=== PATIENT | female | born 1985 | race Caucasian/White ===

== ENCOUNTER 2017-10-14 08:40 | Emergency (ER) | payer SELFPAY ==
--- NOTE | 2017-10-14 09:52 | RAD ---
AP CHEST: Indication: Chest congestion, cough, sore throat. Comparison: 07-07-16 FINDINGS: Lungs are clear. Cardiomediastinal silhouette is within normal limits. There is partial visualization of instrumentation involving the proximal right humerus. No definite acute osseous abnormality is ev ident. There is partial visualization of ACD plate involving the lower cervical spine. IMPRESSION: No acute cardiopulmonary abnormality. POS: [facility]
== END 2017-10-14 10:17 | disposition home or self-care (01) ==
LOC: ERS 08:40
DX: J02.9 Acute pharyngitis, unspecified (principal); Z71.6 Tobacco abuse counseling; F17.210 Nicotine dependence, cigarettes, uncomplicated
CPT/HCPCS: 71045; 87081; 87430; 99406

== ENCOUNTER 2020-07-16 16:15 | Inpatient (IN) | payer SELFPAY ==
[2020-07-16 16:41] LABS: Bacteria/HPF 1+ HPF (None Seen); Bilirubin Negative (Negative); Blood, Urine 3+ (Negative); Clarity Turbid (Clear); Glucose, Urine (Dipstick) Normal (Negative); Ketone, Urine Negative (Negative); Leukocyte 500 Leu/uL (Negative); Nitrite Negative (Negative); Protein, Urine (Dipstick) 30 mg/dL (Neg-Trace); RBC/HPF Greater than 50 HPF (0-3); Specific Gravity, Urine 1.024 (1.002-1.036); Squamous Epithelial 0-3 HPF (0-3); Urobilinogen Normal mg/dL (Less than 2); WBC/HPF Greater than 50 HPF (0-3); pH, Urine 6.5 (5.0-9.0)
[2020-07-16 16:42] LABS: Pregnancy Test - Urine (BHCG) Negative (Negative); Pregu Control Background? CLEAR/WHITE (CLR/WHITE); Pregu Control Bar Appear? YES (CONTROL BAR); Specific Gravity 1.024 (1.002-1.036)
[2020-07-16] MEDS ORDERED: cefTRIAXone\\ROCEPHIN 1 GM VIAL ONE (17:16)
[2020-07-16] MEDS ORDERED: Morphine 4 MG/ML VIAL ONE ×2 (17:16→19:25)
[2020-07-16] MEDS ORDERED: Ketorolac Tromethamine 30 MG/ML VIAL ONE (17:16)
[2020-07-16 17:18] LABS: #Basophils 0.1 thou/uL (0.0-0.2); #Eosinphils 0.1 thou/uL (0.0-0.7); #Lymphocytes 2.5 thou/uL (1.20-3.40); #Monocytes 0.6 thou/uL (0.11-0.59); #Neutrophils 5.3 thou/uL (1.40-6.50); %Basophils 0.8 % (0.0-1.0); %Eosinophils 0.8 % (0.0-10.0); %Lymphocytes 29.6 % (21.0-51.0); %Monocytes 6.6 % (0.0-10.0); %Neutrophils 62.3 % (42.0-75.0); Hemoglobin 13.1 g/dL (12.0-16.0); Mean Corpuscular HGB CONC 34.5 g/dL (32.0-36.0); Mean Corpuscular Hemoglobin 32.8 pg (27.0-31.0); Mean Corpuscular Volume 95.1 fL (78.0-98.0); Mean Platelet Volume 8.4 fL (7.4-10.4); Platelet Count 250 thou/uL (130-400); RBC Distribution Width 11.8 % (11.5-14.5); Red Blood Cell (RBC) Count 4.01 mill/uL (4.20-5.40); White Blood Cell (WBC) Count 8.5 thou/uL (4.8-10.8)
--- NOTE | 2020-07-16 17:35 | CT ---
CT ABDOMEN AND PELVIS WITHOUT IV CONTRAST: 07/16/20 INDICATIONS: History of kidney stones. Flank pain. COMPARISON: Comparison made to lumbar films of 04/24/17 which revealed a large left renal pelvic calcification and showed mild compression of the L3 vertebrae. No other comparison studies available. FINDINGS: Lung bases clear. Liver, spleen, and pancreas unremarkable. Adrenal glands normal. There is a large calcification in the left renal pelvis measuring up to 2.3 cm AP dimension. There is left hydronephrosis. There is inflammatory haziness surrounding the left renal pelvis would suggest secondary infection. There are numerous other calcifications in the upper collecting structures of th e left kidney all measuring up to 1.0 cm. There are several in the mid pole collecting structures and there are also several in the lower pole collecting structures. There appears to be associated cysts in the lower pole left kidney measuring up to 3.3 cm. The right kidney shows no hydronephrosis. A tiny 2 to 3 mm calculus is seen in the mid pole collectin g structures of the right kidney. Faint blush type calcifications are seen in the papilla of the righ t kidney. Ureters appear normal caliber. The urinary bladder is contracted and not well evaluated. The small and large bowel loops appear unremarkable. The retroperitoneum is unremarkable with nonspec ific lymph nodes. Images through the pelvis show unremarkable uterus and adnexa. There is a circumscribed area of air d ensity in the vaginal vault most consistent with either tampon or other vaginal device. Review of the osseous structures show superior end plate compression of the L3 vertebra which has pro gressed when compared to the lumbar films of 04/24/17. There is significant central height loss at this vertebra. Posterior height and alignment is preserved. IMPRESSION: 1. A large calcification in the left renal pelvis which appears to be producing obstructive swain ge at the left UPJ with associated left hydronephrosis. There is haziness surrounding the left renal pelvis which may represent inflammatory change 2. There are numerous other calcifications in the upper pole collecting structures of the left k idney as described. 3. There is a cyst in the lower pole left kidney. 4. At least one small calcification in the mid pole collecting structures of the right kidney. 5. Compression deformity at the L3 vertebra as described. POS: [facility]
[2020-07-16 17:42] LABS: ALT (SGPT) 10 U/L (8-55); AST (SGOT) 15 U/L (5-34); Albumin 4.4 g/dL (3.5-5.0); Alkaline Phosphatase 45 U/L (40-110); Anion Gap 13 mmol/L (10-20); BUN (Urea Nitrogen) 20 mg/dL (7.0-18.7); Bilirubin, Total 0.3 mg/dL (0.2-1.2); Calc. Creatinine Clearance 0 mL/min (70-130); Carbon Dioxide 23 mmol/L (22-29); Chloride 106 mmol/L (98-107); Estimated GFR-MDRD 79; Globulin 2.5 g/dL (2.4-3.5); Glucose 85 mg/dL (70-105); Potassium 4.3 mmol/L (3.5-5.1); Protein, Total 6.9 g/dL (6.0-8.3); Sodium 138 mmol/L (136-145)
--- NOTE | 2020-07-16 18:58 | PDOC.HHP ---
Hospitalist HPI - History of Present Illness Left flank pain History of Present Illness: This is a 34-year-old female patient with a history of nephrolithiasis who presented with ongoing worsening left flank pain. She was diagnosed with nephrolithiasis several months ago for which has been following Dr. Nguyen. Over the past couple of days symptoms became progressively worse with increasing pain in her right flank and associated nausea but no vomiting. She denies any associated fever, dysuria frequency. She also denies any hematuria. Due to worsening symptoms she presented to the ED for further evaluation. At presentation her initial vitals are within normal limits. BMP and CBC were all within normal limits. Urine was turbid with 500 leukocytes, greater than 50 WBCs and 1+ bacteria. CT scan of the abdomen showed obstruction left nephrolithiasis with hydronephrosis He was started on morphine and ketorolac for pain received ceftriaxone. Urology was consulted Hospitalist team consulted for Hospitalist ROS - Review of Systems Constitutional: denies: fever, chills, sweats, weakness Respiratory: denies: cough, shortness of breath, hemoptysis, SOB with excertion Cardiovascular: denies: chest pain, palpitations, orthopnea, paroxysmal noc. dyspnea Gastrointestinal: reports: nausea, abdominal pain. denies: vomiting, diarrhea, constipation Genitourinary: denies: dysuria, frequency, incontinence Neurological: denies: weakness, numbness, incoordination, change in speech Hospitalist History - Past Medical History Other Medical History: Nephrolithiasis - Past Surgical History Other Surgical History: None - Social History Smoking Status: Current every day smoker Alcohol: reports: Occassional Drugs: reports: none Living Situation: With Family - Exam General Appearance: awake alert General - other findings: In no acute distress. Eye: PERRL, anicteric sclera ENT: normocephalic atraumatic, no oropharyngeal lesions Heart: RRR, no murmur, no gallops, no rubs Respiratory: no wheezes, no rales, no tachypnea Gastrointestinal: soft, non-distended, normal bowel sounds, no palpable masses, tender to palpation (Left flank) Extremities: no cyanosis, no clubbing, no edema Hospitalist Results - Labs Result Diagrams: 07/16/20 17:04 07/16/20 17:04 Lab results: WBC 8.5 thou/uL (4.8-10.8) 07/16/20 17:04 Hgb 13.1 g/dL (12.0-16.0) 07/16/20 17:04 Hct 38.1 % (36.0-47.0) 07/16/20 17:04 MCV 95.1 fL (78.0-98.0) 07/16/20 17:04 Plt Count 250 thou/uL (130-400) 07/16/20 17:04 Neutrophils % 62.3 % (42.0-75.0) 07/16/20 17:04 Sodium 138 mmol/L (136-145) 07/16/20 17:04 Potassium 4.3 mmol/L (3.5-5.1) 07/16/20 17:04 Chloride 106 mmol/L (98-107) 07/16/20 17:04 Carbon Dioxide 23 mmol/L (22-29) 07/16/20 17:04 BUN 20 mg/dL (7.0-18.7) H 07/16/20 17:04 Creatinine 0.83 mg/dL (0.6-1.1) 07/16/20 17:04 Glucose 85 mg/dL (70-105) 07/16/20 17:04 Calcium 9.0 mg/dL (7.8-10.44) 07/16/20 17:04 Total Bilirubin 0.3 mg/dL (0.2-1.2) 07/16/20 17:04 AST 15 U/L (5-34) 07/16/20 17:04 ALT 10 U/L (8-55) 07/16/20 17:04 Alkaline Phosphatase 45 U/L (40-110) 07/16/20 17:04 Serum Total Protein 6.9 g/dL (6.0-8.3) 07/16/20 17:04 Albumin 4.4 g/dL (3.5-5.0) 07/16/20 17:04 Urine Ketones Negative mg/dL (Negative) 07/16/20 16:23 Urine Blood 3+ (Negative) A 07/16/20 16:23 Urine Nitrite Negative (Negative) 07/16/20 16:23 Ur Leukocyte Esterase 500 Gillian/uL (Negative) A 07/16/20 16:23 Urine RBC Greater than 50 HPF (0-3) A 07/16/20 16:23 Urine WBC Greater than 50 HPF (0-3) A 07/16/20 16:23 Ur Squamous Epith Cells 0-3 HPF (0-3) 07/16/20 16:23 Urine Bacteria 1+ HPF (None Seen) A 07/16/20 16:23 Hospitalist H&P A/P - Plan Plan: This a 34-year-old female patient with left nephrolithiasis with hydronephrosis being admitted for further evaluation. Left nephrolithiasis with hydronephrosis Pain relief ketorolac/morphine IV fluid Urology consulted Physician communicated with Urinary tract infection UA indicative Started on ceftriaxonewe will continue Follow-up on urine cultures. Tobacco abuse Consult [place] prophylaxisLovenox CODE STATUSfull code
[2020-07-16] MEDS ORDERED: Acetaminophen 325 MG TAB PO PRN (19:44)
[2020-07-16] MEDS ORDERED: Lactated Ringer's 1,000 ML IV SCH (19:45)
[2020-07-16] MEDS ORDERED: cefTRIAXone Sodium 1 MG in Syringe 0 ML IVPB SCH (20:00)
[2020-07-16] MEDS: Sodium Chloride 0.9% 1,000 ML IV SCH (20:16)
[2020-07-16 20:25] VITALS: BMI 18.9
[2020-07-16] MEDS: HYDROcodone/Acetaminophen 5/325 mg Tablet PO PRN (22:31)
[2020-07-16] MEDS: Nicotine 14 MG PATCH TOP SCH (22:32)
[2020-07-17] MEDS: Morphine 2 MG/ML VIAL SLOW IVP PRN ×4 (05:52→22:54)
[2020-07-17] MEDS: Sodium Chloride 0.9% 1,000 ML IV SCH ×3 (05:57→22:54)
[2020-07-17 05:59] LABS: #Basophils 0.1 thou/uL (0.0-0.2); #Eosinphils 0.2 thou/uL (0.0-0.7); #Monocytes 0.6 thou/uL (0.11-0.59); %Basophils 1.1 % (0.0-1.0); %Eosinophils 2.6 % (0.0-10.0); %Lymphocytes 37.8 % (21.0-51.0); %Monocytes 7.3 % (0.0-10.0); %Neutrophils 51.3 % (42.0-75.0); Mean Corpuscular HGB CONC 34.6 g/dL (32.0-36.0); Mean Corpuscular Volume 95.4 fL (78.0-98.0); Mean Platelet Volume 8.8 fL (7.4-10.4); Platelet Count 207 thou/uL (130-400); RBC Distribution Width 11.8 % (11.5-14.5); Red Blood Cell (RBC) Count 3.33 mill/uL (4.20-5.40); White Blood Cell (WBC) Count 7.9 thou/uL (4.8-10.8)
[2020-07-17 06:04] LABS: Anion Gap 9 mmol/L (10-20); BUN (Urea Nitrogen) 20 mg/dL (7.0-18.7); Calc. Creatinine Clearance 114 mL/min (70-130); Calcium 7.7 mg/dL (7.8-10.44); Carbon Dioxide 21 mmol/L (22-29); Chloride 113 mmol/L (98-107); Estimated GFR-MDRD Greater than 90; Glucose 77 mg/dL (70-105); Potassium 3.9 mmol/L (3.5-5.1); Sodium 139 mmol/L (136-145)
[2020-07-17 07:18] LABS: INR-International Normal Ratio 1.1; PTT 35.5 sec (22.9-36.1); Prothrombin Time 14.2 sec (12.0-14.7)
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
[2020-07-17] MEDS ORDERED: Fentanyl 100 MCG/2 ML VIAL ONE (08:44)
[2020-07-17] MEDS ORDERED: Midazolam HCl 2 mg/2 ml Vial ONE (08:44)
[2020-07-17 08:46] LABS: HBCM Index 0.34 S/CO (0-0.79); HBSAg Index 0.17 S/CO (0-0.99); HIV (1/2) Antibody/Antigen Non-Reactive (NonReactive); HIV 1/2 INDEX 0.07 S/CO (<1.00); Hep A IgM AB Non-Reactive (NonReactive); Hep A IgM S/CO 0.22 S/CO (0-0.79); Hep B Surf Ag Non-Reactive S/CO (NonReactive); Hep C IgG Ab Non-Reactive (NonReactive); Hep C Index 0.08 S/CO (0-0.79); Hepatitis B Core IgM Abs Non-Reactive (NonReactive)
--- NOTE | 2020-07-17 09:06 | RAD ---
2 VIEWS CHEST: Date: 07/17/2020 PROVIDED CLINICAL HISTORY: Preop. FINDINGS: Comparison with 07/07/2016. Cardiac and mediastinal silhouette is within normal limits. No focal consolidation, pleural fluid, or pneumothorax apparent. Partially visualized postoperative changes involving the right proximal humer us. IMPRESSION: No evidence for an acute cardiopulmonary process. POS: [facility]
--- NOTE | 2020-07-17 12:31 | PDOC.HOSPP ---
- Subjective Encounter Date: 07/17/20 Encounter Time: 12:29 Subjective: Ms. Serrano was seen today in follow-up of Stage horn calculous, and hydronephrosis. She is back from Left nephostomy tube placement. She has some pain in the area, but overall no complaints. - Objective Vital Signs & Weight: Vital Signs (12 hours) Temp Pulse Resp BP BP Pulse Ox 07/17/20 08:00 97.9 F 53 L 16 95/59 L 98 07/17/20 07:43 97.9 F 51 L 16 95/59 L 98 07/17/20 05:56 116/68 07/17/20 04:21 97.7 F 67 16 94/55 L 96 Weight Admit Weight 132 lb Weight 132 lb I&O: 07/16/20 07/17/20 07/18/20 06:59 06:59 06:59 Intake Total 1400 Balance 1400 Result Diagrams: 07/17/20 05:23 07/17/20 05:23 Hospitalist ROS - Medication Medications: Active Medications Generic Name Dose Route Start Last Admin Trade Name Freq PRN Reason Stop Dose Admin Hydrocodone Bitart/Acetaminophen 1 tab 07/16/20 19:44 07/16/20 22:31 Hydrocodone/Acetaminophen 5/325 Mg Tablet PO 1 tab Q4H PRN Administration Moderate Pain (4-6) Sodium Chloride 1,000 mls @ 100 mls/hr 07/16/20 20:00 07/17/20 05:57 Normal Saline 0.9% IV 1,000 mls .Q10H BOBBY Administration Morphine Sulfate 2 mg 07/17/20 01:42 07/17/20 11:28 Morphine 2 Mg/Ml Vial SLOW IVP 2 mg Q4H PRN Administration Moderate to Severe Pain (6-10) Nicotine 14 mg 07/16/20 22:30 07/16/20 22:32 Nicotine 14 Mg Patch TOP 14 mg Q24HR BOBBY Administration Pneumococcal Polyvalent Vaccine 0.5 ml 07/17/20 21:00 07/17/20 01:34 Pneumococcal 23 "Pneumovax" 0.5 Ml Vial IM 07/17/20 21:01 Not Given .ONCE ONE - Exam Eye: PERRL, anicteric sclera ENT: normocephalic atraumatic Heart: RRR, no murmur, no gallops, no rubs, normal peripheral pulses Respiratory: CTAB, no wheezes, no rales, no ronchi, normal chest expansion Gastrointestinal: soft, non-tender, non-distended, normal bowel sounds, no palpable masses Extremities: no cyanosis, no edema Hosp A/P (1) Left nephrolithiasis Code(s): N20.0 - CALCULUS OF KIDNEY Status: Acute (2) Staghorn calculus Code(s): N20.0 - CALCULUS OF KIDNEY Status: Acute (3) UTI (urinary tract infection) Status: Acute - Plan * Left Staghorn calculous with hydronephrosis and UTI- she is s/p Nephrostomy tube placement * Continue emiric antibiotics with Rocephin * Awaiting urine culture results * Await further recommendations from Urology
--- NOTE | 2020-07-17 12:43 | RAD ---
KUB INDICATION: Status post nephrostomy tube COMPARISON: Prior CT abdomen pelvis dated July 08, 2020 and the nephrostomy fluoroscopic images da pineda July 17, 2020 FINDINGS: Bowel gas: Nonspecific but without overt appearance of obstruction. Lung bases: Clear. Additional findings: The large staghorn calculus overlying the left renal shadow does not appear appr eciably changed. The percutaneous nephrostomy tube is likely unchanged in position. Osseous structures: No acute osseous abnormality is demonstrated. IMPRESSION: 1. Large left staghorn calculus with left-sided nephrostomy tube.
[2020-07-17 12:57] LABS: SARS-CoV-2 MS2 Positive; SARS-CoV-2 N Gene Negative; SARS-CoV-2 S Gene Negative; SARS-CoV-2 by NAA Not Detected (NotDetected); SARS-CoV-2 orf1ab Negative
[2020-07-17] MEDS: HYDROcodone/Acetaminophen 5/325 mg Tablet PO PRN ×2 (13:07→19:50)
[2020-07-17] MEDS ORDERED: Iopamidol 300 61% 50 ML VIAL FS ONE (15:01)
--- NOTE | 2020-07-17 17:11 | SPC ---
Left percutaneous nephrostomy catheter placement sonographic guided Conscious sedation: At least 1 hour spent with the patient for conscious sedation. HISTORY: Obstructing left ureteral calculus. Pyelonephritis. FINDINGS: After explaining the procedure and answering all questions, the left flank was prepped and draped in usual sterile fashion. Sonographic survey shows severe left hydronephrosis with large calcification at the renal pelvis. Sterile technique, buffered local anesthesia, conscious sedation, sonographic guidance, and a left po sterior approach were used to carefully advance a 21-gauge AccuStick needle to the dilated lower pole posterior calyx. Small amount of urine was aspirated. Small contrast injected to opacify the system. 0.018 wire was placed and AccuStick technique used to place a 0.035 J-wire. The wire would not advance into the renal pelvis. It was being blocked by the stone. A 5 Cambodian tapered Berenstein catheter was carefully placed to the central portion of the dilated inf erior pole collecting system. Extensive attempts with a 0.035 glide wire and a 0.035 Amplatz wire to advance into the renal pelvis and ureter were unsuccessful due to the staghorn type calculus compl etely filling the renal pelvis and partially protruding into the inferior pole system. Recent CT scan was closely reviewed, showing that the stone also protrudes into the superior pole col lecting system, so that it would likely not give a better chance for passage of wire. Access to the superior pole system would also be risky. Fluid contrast distention of the system was used in an attempt to distend the system for passage wire , but was unsuccessful. Findings were discussed with Dr. Torres. An 8 Cambodian skater locking loop catheter was then placed into the dilated inferior pole collecting sy stem and secured internally with a coil. It was secured externally with 0 silk suture and left draining to gravity with blood-tinged urine. Patient tolerated the procedure well and was returned in improved condition. IMPRESSION : Technically successful left percutaneous nephrostomy catheter placement. Attempts to pass a wire and catheter into and beyond the renal pelvic staghorn calculus were unsuccessful.
[2020-07-17] MEDS: cefTRIAXone\\ROCEPHIN 1 GM in Sodium Chloride 0.9% 100 ML IVPB SCH (17:53)
[2020-07-17] MEDS: Nicotine 14 MG PATCH TOP SCH (22:48)
[2020-07-18] MEDS: HYDROcodone/Acetaminophen 5/325 mg Tablet PO PRN ×3 (04:54→20:06)
--- NOTE | 2020-07-18 07:42 | PDOC.HOSPP ---
- Objective Vital Signs & Weight: Vital Signs (12 hours) Temp Pulse Resp BP Pulse Ox 07/18/20 07:11 98.3 F 68 17 106/63 97 07/18/20 04:50 98.3 F 73 17 103/63 94 L 07/17/20 23:11 98.2 F 64 18 101/59 L 95 Weight Admit Weight 132 lb Weight 132 lb I&O: 07/17/20 07/18/20 07/19/20 06:59 06:59 06:59 Intake Total 1400 1400 Output Total 750 Balance 1400 650 Result Diagrams: 07/17/20 05:23 07/17/20 05:23 Hospitalist ROS - Medication Medications: Active Medications Generic Name Dose Route Start Last Admin Trade Name Freq PRN Reason Stop Dose Admin Acetaminophen 650 mg 07/16/20 19:44 07/17/20 15:35 Acetaminophen 325 Mg Tab PO 650 mg Q4H PRN Administration Headache/Fever/Mild Pain (1-3) Hydrocodone Bitart/Acetaminophen 1 tab 07/16/20 19:44 07/18/20 04:54 Hydrocodone/Acetaminophen 5/325 Mg Tablet PO 1 tab Q4H PRN Administration Moderate Pain (4-6) Sodium Chloride 1,000 mls @ 100 mls/hr 07/16/20 20:00 07/17/20 22:54 Normal Saline 0.9% IV 1,000 mls .Q10H BOBBY Administration Ceftriaxone Sodium 1 gm/ 100 mls @ 200 mls/hr 07/17/20 18:00 07/17/20 17:53 Sodium Chloride IVPB 100 mls Q24HR BOBBY Administration Morphine Sulfate 2 mg 07/17/20 01:42 07/17/20 22:54 Morphine 2 Mg/Ml Vial SLOW IVP 2 mg Q4H PRN Administration Moderate to Severe Pain (6-10) Nicotine 14 mg 07/16/20 22:30 07/17/20 22:48 Nicotine 14 Mg Patch TOP 14 mg Q24HR BOBBY Administration Hosp A/P (1) Left nephrolithiasis Code(s): N20.0 - CALCULUS OF KIDNEY Status: Acute (2) Staghorn calculus Code(s): N20.0 - CALCULUS OF KIDNEY Status: Acute (3) UTI (urinary tract infection) Status: Acute - Plan * Left Staghorn calculous with hydronephrosis and UTI- she is s/p Nephrostomy tube placement * Continue emiric antibiotics with Rocephin * Awaiting urine culture results * Await further recommendations from Urology
[2020-07-18 07:43] LABS: Hemoglobin 12.7 g/dL (12.0-16.0); Mean Corpuscular HGB CONC 34.5 g/dL (32.0-36.0); Mean Corpuscular Hemoglobin 33.2 pg (27.0-31.0); Mean Corpuscular Volume 96.5 fL (78.0-98.0); Mean Platelet Volume 8.5 fL (7.4-10.4); Platelet Count 191 thou/uL (130-400); RBC Distribution Width 11.7 % (11.5-14.5); Red Blood Cell (RBC) Count 3.81 mill/uL (4.20-5.40); White Blood Cell (WBC) Count 6.9 thou/uL (4.8-10.8)
[2020-07-18 07:59] LABS: Anion Gap 17 mmol/L (10-20); BUN (Urea Nitrogen) 10 mg/dL (7.0-18.7); Calc. Creatinine Clearance 114 mL/min (70-130); Calcium 8.2 mg/dL (7.8-10.44); Carbon Dioxide 16 mmol/L (22-29); Chloride 108 mmol/L (98-107); Estimated GFR-MDRD Greater than 90; Potassium 4.2 mmol/L (3.5-5.1); Sodium 137 mmol/L (136-145)
[2020-07-18 08:04] LABS: Glucose 56 mg/dL (70-105)
--- NOTE | 2020-07-18 08:16 | PRG ---
DATE OF SERVICE: 07/18/2020 SUBJECTIVE: discomfort, @ nephrostomy tube site is anticipated, however, adequately controlled. OBJECTIVE: VITAL SIGNS: Stable and she is afebrile. Is and Os, 1400 in and 750 out, 350 out from the nephrostomy tube, pink nelson tinge with no clots. GENERAL: The patient is in no acute distress. HEART: Regular rate. LUNGS: Clear. ABDOMEN: Soft. No rigidity. No rebound. Nephrostomy tube is secured. EXTREMITIES: No cyanosis, clubbing, or edema. MUSCULOSKELETAL: Equal and symmetric. PSYCHIATRIC: Appears to be appropriate. LABORATORY DATA: Yesterday her white count is 7.9, hemoglobin 11, platelet 207. Coagulation profile is normal. INR 1.1, PTT of 35. Renal function stable. Creatinine of 0.66. test is negative. She is COVID negative, hepatitis and HIV negative. Urine culture on initial presentation is preliminary no growth. Nephrostomy tube, urine output preliminary is negative. She remains on Rocephin. IMPRESSION AND PLAN: 1. Ms. Serrano is a 34-year-old female with history of chronic pain, presented with intractable left flank pain, left staghorn calculi. 2. Status post left nephrostomy tube by Interventional Radiology, which is draining uneventfully. RECOMMENDATION: The patient is to remain in-house for broad-spectrum IV antibiotic therapy. She has been taking Cipro and Bactrim as an outpatient, culture remain negative thus far. we do not know her initial microorganism as she has been on prolonged antibiotic suppressive therapy. Long discussion with patient at bedside, she has a chronic obstructing left kidney, there is a possibility that the left kidney function is diminished. Nevertheless, she requires her kidney stones treated due to presenting discomfort. Although there is mild thinning of the cortex in the left upper pole, it is likely that her kidney is functioning enough to proceed with left PCNL, however continues to make urine from the left nephrostomy tube. This is reassuring. Surgery is scheduled for July 21. She is to be typed and crossed, continue IV Rocephin. Plan IV meropenem on-call to OR. No anticoagulation, i.e., no Lovenox, Toradol as we are planning percutaneous nephrolithotomy on Tuesday. N.p.o. after midnight Tuesday. Appreciate hospitalist's assistance. Dr. Francisco from [facility] covering this weekend , I do not anticipate that she will require acute urologic care. He will be available for p.r.n. issues if needed. Indications for surgery discussed with patient in detail as well as risks and complications including bleeding, pain, infection, injury to adjacent organs, ureteral or renal kidney injury, possible intractable bleeding requiring embolization. Rare nephrectomy discussed with her in detail. She was fully informed, that stage intervention would likely be performed due to multi calyceal presenting stone. Moreover, if significant inflammatory component in which distal access cannot be obtained to the level of the bladder, she will require nephrostomy tube drainage, for a longer period of time to allow inflammatory component to ideally resolve; moreover cannot rule out UPJ obstruction/stenosis from chronic inflammation/chronic obstruction. This was discussed with her in detail and she desires to proceed on Tuesday [facility] [id number] [facility]
[2020-07-18] MEDS: Sodium Chloride 0.9% 1,000 ML IV SCH ×2 (08:43→22:08)
[2020-07-18] MEDS: Morphine 2 MG/ML VIAL SLOW IVP PRN ×2 (08:43→22:03)
--- NOTE | 2020-07-18 08:56 | PDOC.HOSPP ---
- Subjective Encounter Date: 07/18/20 Encounter Time: 08:54 Subjective: Ms. Serrano was seen today in follow of Nephrolithiasis, and UTI. She notes pain in her left side which radiates to the front. She also developed a cough. - Objective Vital Signs & Weight: Vital Signs (12 hours) Temp Pulse Resp BP Pulse Ox 07/18/20 07:11 98.3 F 68 17 106/63 97 07/18/20 04:50 98.3 F 73 17 103/63 94 L 07/17/20 23:11 98.2 F 64 18 101/59 L 95 Weight Admit Weight 132 lb Weight 132 lb I&O: 07/17/20 07/18/20 07/19/20 06:59 06:59 06:59 Intake Total 1400 1400 Output Total 750 Balance 1400 650 Result Diagrams: 07/18/20 07:30 07/18/20 07:30 Hospitalist ROS - Medication Medications: Active Medications Generic Name Dose Route Start Last Admin Trade Name Freq PRN Reason Stop Dose Admin Acetaminophen 650 mg 07/16/20 19:44 07/17/20 15:35 Acetaminophen 325 Mg Tab PO 650 mg Q4H PRN Administration Headache/Fever/Mild Pain (1-3) Hydrocodone Bitart/Acetaminophen 1 tab 07/16/20 19:44 07/18/20 04:54 Hydrocodone/Acetaminophen 5/325 Mg Tablet PO 1 tab Q4H PRN Administration Moderate Pain (4-6) Sodium Chloride 1,000 mls @ 100 mls/hr 07/16/20 20:00 07/18/20 08:43 Normal Saline 0.9% IV 1,000 mls .Q10H BOBBY Administration Ceftriaxone Sodium 1 gm/ 100 mls @ 200 mls/hr 07/17/20 18:00 07/17/20 17:53 Sodium Chloride IVPB 100 mls Q24HR BOBBY Administration Morphine Sulfate 2 mg 07/17/20 01:42 07/18/20 08:43 Morphine 2 Mg/Ml Vial SLOW IVP 2 mg Q4H PRN Administration Moderate to Severe Pain (6-10) Nicotine 14 mg 07/16/20 22:30 07/17/20 22:48 Nicotine 14 Mg Patch TOP 14 mg Q24HR BOBBY Administration - Exam Eye: PERRL, anicteric sclera Heart: RRR, no murmur, no gallops, no rubs, normal peripheral pulses Respiratory: CTAB, no wheezes, no rales, no ronchi, normal chest expansion, no tachypnea, normal percussion Gastrointestinal: soft, non-tender, non-distended, normal bowel sounds, no palpable masses, no hepatomegaly Extremities: no cyanosis, no edema Hosp A/P (1) Left nephrolithiasis Code(s): N20.0 - CALCULUS OF KIDNEY Status: Acute (2) Staghorn calculus Code(s): N20.0 - CALCULUS OF KIDNEY Status: Acute (3) UTI (urinary tract infection) Status: Acute - Plan * Left Staghorn calculous with hydronephrosis and UTI- she is s/p Nephrostomy tube placement * Chest and side pain- this may be referred from the nephrostomy tube - if it continues may need radiographic evaluation * Continue empiric antibiotics with Rocephin and Meropenem has been added * Urine cultures are still pending * Urology work-up is in progress
--- NOTE | 2020-07-18 16:56 | PDOC.BPN ---
- Brief Progress Note Encounter Date: 07/18/20 Encounter Time: 16:51 Patient's medical case discussed with Dr. Torres. The patient will be monitored over the weekend. She will go to surgery on Tuesday to have a procedure for stone removal. Dr. Torres requests that she NOT receive any Lovenox going forward due to the risk for severe bleeding .
[2020-07-18] MEDS: cefTRIAXone\\ROCEPHIN 1 GM in Sodium Chloride 0.9% 100 ML IVPB SCH (17:26)
[2020-07-18] MEDS: Nicotine 14 MG PATCH TOP SCH (20:07)
[2020-07-19] MEDS: HYDROcodone/Acetaminophen 5/325 mg Tablet PO PRN ×3 (04:23→23:19)
[2020-07-19] MEDS: Sodium Chloride 0.9% 1,000 ML IV SCH (08:30)
--- NOTE | 2020-07-19 09:03 | PDOC.HOSPP ---
- Subjective Encounter Date: 07/19/20 Encounter Time: 12:00 Subjective: Patient with some persistent pain on and off from nephrostomy tube site. No other complaints. - Objective Vital Signs & Weight: Vital Signs (12 hours) Temp Pulse Resp BP Pulse Ox 07/19/20 08:00 98 07/19/20 07:16 97.4 F L 59 L 17 103/56 L 98 07/19/20 04:30 97.9 F 60 18 102/66 98 Weight Admit Weight 132 lb Weight 132 lb I&O: 07/18/20 07/19/20 07/20/20 06:59 06:59 05:59 Intake Total 1400 1850 Output Total 750 2450 Balance 650 -600 Result Diagrams: 07/18/20 07:30 07/18/20 07:30 Hospitalist ROS - Review of Systems Constitutional: denies: fever, chills Respiratory: denies: cough, shortness of breath Cardiovascular: denies: chest pain, palpitations Gastrointestinal: denies: nausea, vomiting - Medication Medications: Active Medications Generic Name Dose Route Start Last Admin Trade Name Freq PRN Reason Stop Dose Admin Acetaminophen 650 mg 07/16/20 19:44 07/17/20 15:35 Acetaminophen 325 Mg Tab PO 650 mg Q4H PRN Administration Headache/Fever/Mild Pain (1-3) Hydrocodone Bitart/Acetaminophen 1 tab 07/16/20 19:44 07/19/20 04:23 Hydrocodone/Acetaminophen 5/325 Mg Tablet PO 1 tab Q4H PRN Administration Moderate Pain (4-6) Ceftriaxone Sodium 1 gm/ 100 mls @ 200 mls/hr 07/17/20 18:00 07/18/20 17:26 Sodium Chloride IVPB 100 mls Q24HR BOBBY Administration Morphine Sulfate 2 mg 07/17/20 01:42 07/18/20 22:03 Morphine 2 Mg/Ml Vial SLOW IVP 2 mg Q4H PRN Administration Moderate to Severe Pain (6-10) Nicotine 14 mg 07/16/20 22:30 07/18/20 20:07 Nicotine 14 Mg Patch TOP 14 mg Q24HR BOBBY Administration - Exam General Appearance: NAD, awake alert ENT: moist mucosa Heart: RRR, no murmur, no gallops, no rubs Respiratory: CTAB, no wheezes, no rales, no ronchi Gastrointestinal: soft, normal bowel sounds Gastrointestinal - other findings: Nephrostomy tube site with dressing in place, C/D/I Psychiatric: normal affect, normal behavior, A&O x 3 Hosp A/P (1) Left nephrolithiasis Code(s): N20.0 - CALCULUS OF KIDNEY Status: Acute (2) Staghorn calculus Code(s): N20.0 - CALCULUS OF KIDNEY Status: Acute (3) UTI (urinary tract infection) Status: Acute - Plan * Left Staghorn calculous with hydronephrosis and UTI- she is s/p Nephrostomy tube placement * Chest and side pain- this may be referred from the nephrostomy tube - if it continues may need radiographic evaluation * Continue empiric antibiotics with Rocephin and Meropenem has been added * Urine cultures negative thus far * Urology planning on surgical stone removal on Tuesday, no Lovenox prior to surgery
[2020-07-19] MEDS: Dextrose 5 %-0.45 % NaCl 1,000 ML IV SCH (09:51)
[2020-07-19] MEDS: Morphine 2 MG/ML VIAL SLOW IVP PRN ×3 (11:15→21:08)
[2020-07-19] MEDS: cefTRIAXone\\ROCEPHIN 1 GM in Sodium Chloride 0.9% 100 ML IVPB SCH (18:33)
[2020-07-19] MEDS: Nicotine 14 MG PATCH TOP SCH (21:05)
[2020-07-20] MEDS: Dextrose 5 %-0.45 % NaCl 1,000 ML IV SCH ×2 (05:15→22:31)
[2020-07-20] MEDS: HYDROcodone/Acetaminophen 5/325 mg Tablet PO PRN ×3 (06:14→22:28)
[2020-07-20] MEDS: Morphine 2 MG/ML VIAL SLOW IVP PRN (09:02)
[2020-07-20] MEDS ORDERED: Cyclobenzaprine 10 MG TAB PO PRN (11:00)
--- NOTE | 2020-07-20 12:58 | PDOC.HOSPP ---
- Subjective Encounter Date: 07/20/20 Encounter Time: 12:50 Subjective: f/u for L staghorn calculus s/p nephrostomy tube placement receiving Rocephin/Meropenem. Plan for surgical extraction of stone likely 07/21/20. - Objective Vital Signs & Weight: Vital Signs (12 hours) Temp Pulse Resp BP Pulse Ox 07/20/20 08:00 96 07/20/20 07:25 98.2 F 69 16 103/68 98 Weight Admit Weight 132 lb Weight 132 lb I&O: 07/19/20 07/20/20 07/21/20 07:59 06:59 06:59 Intake Total Output Total Balance Result Diagrams: 07/18/20 07:30 07/18/20 07:30 Additional Labs: Microbiology 07/17/20 15:29 Urine Nephrostomy tube Urine Culture - Final NO GROWTH AT 48 HOURS 07/16/20 16:23 Urine voided Urine Culture - Final Hospitalist ROS - Medication Medications: Active Medications Generic Name Dose Route Start Last Admin Trade Name Freq PRN Reason Stop Dose Admin Acetaminophen 650 mg 07/16/20 19:44 07/17/20 15:35 Acetaminophen 325 Mg Tab PO 650 mg Q4H PRN Administration Headache/Fever/Mild Pain (1-3) Hydrocodone Bitart/Acetaminophen 1 tab 07/16/20 19:44 07/20/20 06:14 Hydrocodone/Acetaminophen 5/325 Mg Tablet PO 1 tab Q4H PRN Administration Moderate Pain (4-6) Cyclobenzaprine HCl 10 mg 07/20/20 11:00 07/20/20 11:12 Cyclobenzaprine 10 Mg Tab PO 10 mg Q8H PRN Administration NECK OR MUSCLE PAIN Ceftriaxone Sodium 1 gm/ 100 mls @ 200 mls/hr 07/17/20 18:00 07/19/20 18:33 Sodium Chloride IVPB 100 mls Q24HR BOBBY Administration Dextrose/Sodium Chloride 1,000 mls @ 50 mls/hr 07/19/20 09:15 07/20/20 05:15 D5 1/2 Ns IV Not Given .Q20H BOBBY Morphine Sulfate 2 mg 07/17/20 01:42 07/20/20 09:02 Morphine 2 Mg/Ml Vial SLOW IVP 2 mg Q4H PRN Administration Moderate to Severe Pain (6-10) Nicotine 14 mg 07/16/20 22:30 07/19/20 21:05 Nicotine 14 Mg Patch TOP 14 mg Q24HR BOBBY Administration - Exam General Appearance: NAD, awake alert Eye: PERRL, anicteric sclera ENT: normocephalic atraumatic, no oropharyngeal lesions Neck: supple, symmetric, no JVD, no thyromegaly, no lymphadenopathy Heart: RRR, no murmur, no gallops, no rubs, normal peripheral pulses Heart - other findings: S1, S2 Respiratory: CTAB, no wheezes, no rales, no ronchi, normal chest expansion Gastrointestinal: soft, non-tender, non-distended, normal bowel sounds, no palpable masses Extremities: no cyanosis, no clubbing, no edema Skin: normal turgor Neurological: cranial nerve grossly intact, no new deficit Musculoskeletal: normal tone, normal strength, no muscle wasting Psychiatric: normal affect, A&O x 3 Hosp A/P (1) Left nephrolithiasis Code(s): N20.0 - CALCULUS OF KIDNEY Status: Acute Plan: s/p nephrostomy tube placement, plan for further intervention on 07/21 (2) Staghorn calculus Code(s): N20.0 - CALCULUS OF KIDNEY Status: Acute Plan: See above #1 (3) UTI (urinary tract infection) Status: Acute Plan: Suspected however no dominant organism identified, continue Rocephin/Meropenem (4) Tobacco abuse Code(s): Z72.0 - TOBACCO USE Status: Chronic Plan: Cessation resources - Plan continue antibiotics, out of bed/ambulate, DVT proph w/SCDs Stable overall Continue Rocephin/Meropenem Continue IVF's Pain control as clinically indicated NPO after MN No Lovenox/Toradol pending surgery AM lab: BMP, CBC
[2020-07-20] MEDS: cefTRIAXone\\ROCEPHIN 1 GM in Sodium Chloride 0.9% 100 ML IVPB SCH (16:41)
[2020-07-20] MEDS: Nicotine 14 MG PATCH TOP SCH (22:14)
[2020-07-21] MEDS ORDERED: Ondansetron PF 4 MG/2 ML Vial IVP PRN (00:10)
[2020-07-21] MEDS ORDERED: Ondansetron ODT 4 MG TAB PO PRN (00:10)
[2020-07-21] MEDS: HYDROcodone/Acetaminophen 5/325 mg Tablet PO PRN ×2 (05:29→23:06)
[2020-07-21 06:01] LABS: Hemoglobin 11.5 g/dL (12.0-16.0); Mean Corpuscular HGB CONC 34.7 g/dL (32.0-36.0); Mean Corpuscular Hemoglobin 32.5 pg (27.0-31.0); Mean Corpuscular Volume 93.6 fL (78.0-98.0); Mean Platelet Volume 8.8 fL (7.4-10.4); Platelet Count 210 thou/uL (130-400); RBC Distribution Width 11.6 % (11.5-14.5); Red Blood Cell (RBC) Count 3.54 mill/uL (4.20-5.40); White Blood Cell (WBC) Count 4.8 thou/uL (4.8-10.8)
[2020-07-21 06:24] LABS: Anion Gap 14 mmol/L (10-20); BUN (Urea Nitrogen) 5 mg/dL (7.0-18.7); Calc. Creatinine Clearance 121 mL/min (70-130); Calcium 8.5 mg/dL (7.8-10.44); Carbon Dioxide 23 mmol/L (22-29); Chloride 106 mmol/L (98-107); Estimated GFR-MDRD Greater than 90; Glucose 87 mg/dL (70-105); Potassium 3.5 mmol/L (3.5-5.1); Sodium 139 mmol/L (136-145)
[2020-07-21] MEDS ORDERED: Thrombin 5000 UNITS/5 ML VIAL ONE (06:36)
--- NOTE | 2020-07-21 07:50 | PRG ---
DATE OF SERVICE: 07/21/2020 SUBJECTIVE: The patient doing fine over the weekend, remains afebrile. Appears comfortable. OBJECTIVE: VITAL SIGNS: Stable. Afebrile. I and O's 1950 in, nephrostomy tube output 200 to 450 mL per shift. Urine output nelson in color. GENERAL: The patient is in no acute distress. HEART: Regular rate. LUNGS: Clear. ABDOMEN: Soft. No rigidity. No rebound. No CVA tenderness. Nephrostomy tube in place. EXTREMITIES: No cyanosis, clubbing, or edema. LABORATORY DATA: Morning labs; white count 4.8, hemoglobin 11.5, platelet 210. Coagulation profile is within normal limits. Creatinine 0.62. She has COVID negative. Hepatitis and HIV negative. Urine culture negative. Has been on Rocephin since admission. IMPRESSION AND PLAN: A 34-year-old old female with history of chronic urinary tract infection, left staghorn calculus, large stone burden. Nephrostomy tube was placed by Interventional Radiology on July 17, unable to access the proximal ureter due to impacted nature of the UPJ stone. She is n.p.o. for PCNL, cysto, retrograde ureteral stent catheterization. patient has been fully informed regarding risks and complications, indications. Challenging nature of her multiple stones, likely impacted in nature, UPJ has been discussed with the patient in detail. Possibility of multiple staged intervention has also been discussed. Risks and complications again reviewed including, not limited to, bleeding, pain, infection, injury to adjacent organs, urosepsis, ureteral or renal kidney injury, rare life-threatening hemorrhage requiring embolization, nephrectomy. The patient is typed and crossed. Continue Rocephin, meropenem on-call to OR. Job ID: [id number] [facility]
[2020-07-21] MEDS ORDERED: PROPOFOL 200 MG/20 ML VIAL ONE (09:32)
[2020-07-21] MEDS ORDERED: Lidocaine 1% PF 5 ML VIAL ONE (09:32)
[2020-07-21] MEDS ORDERED: Rocuronium Bromide 10 MG/ML (10ML VIAL) ONE (09:32)
[2020-07-21] MEDS ORDERED: Dexamethasone 20 MG/5 ML VIAL ONE (09:32)
[2020-07-21] MEDS ORDERED: Ondansetron PF 4 MG/2 ML Vial ONE (09:32)
[2020-07-21] MEDS ORDERED: Iothalamate Meglumine 60% 50 ML VIAL FS ONE ×2 (10:14→11:05)
[2020-07-21] MEDS ORDERED: Fentanyl 100 MCG/2 ML VIAL ONE ×3 (10:16→14:36)
[2020-07-21] MEDS ORDERED: Midazolam HCl 2 mg/2 ml Vial ONE ×2 (10:36→11:12)
[2020-07-21] MEDS ORDERED: Meropenem 2 GM, Admixture Fee 1 EACH in Sodium Chloride 0.9% 100 ML IVPB SCH (11:00)
[2020-07-21] MEDS ORDERED: Iopamidol 0 ML ONE (12:48)
[2020-07-21] MEDS ORDERED: Iopamidol 15 ML ONE (12:49)
[2020-07-21] MEDS ORDERED: Iopamidol 30 ML ONE (13:01)
[2020-07-21] MEDS ORDERED: Mag-Al 1200 mg/1200 mg/30 ML UDCUP PO PRN (13:41)
[2020-07-21] MEDS ORDERED: Acetaminophen 500 MG TAB PO PRN (13:41)
[2020-07-21] MEDS ORDERED: Promethazine HCl 25 MG/ML VIAL SLOW IVP PRN (13:48)
[2020-07-21] MEDS ORDERED: Ondansetron HCl/PF 4 MG/2 ML Vial IVP PRN (13:48)
[2020-07-21] MEDS ORDERED: Promethazine HCl 25 MG/ML VIAL IM PRN (13:48)
[2020-07-21] MEDS ORDERED: HYDROmorphone 2 MG/ML VIAL SLOW IVP PRN (13:48)
[2020-07-21] MEDS: Sodium Chloride 0.9% 1,000 ML IV SCH ×2 (14:00→23:07)
[2020-07-21] MEDS ORDERED: HYDROmorphone 0.5 MG/0.5 ML SYRINGE ONE ×2 (14:10→14:25)
[2020-07-21] MEDS ORDERED: HYDROmorphone 2 MG/ML VIAL ONE (14:36)
[2020-07-21 14:51] LABS: #Eosinphils 0.1 thou/uL (0.0-0.7); #Lymphocytes 0.9 thou/uL (1.20-3.40); #Monocytes 0.3 thou/uL (0.11-0.59); %Basophils 0.3 % (0.0-1.0); %Lymphocytes 12.5 % (21.0-51.0); %Monocytes 3.7 % (0.0-10.0); %Neutrophils 82.5 % (42.0-75.0); Hemoglobin 13.4 g/dL (12.0-16.0); Mean Corpuscular Volume 94.1 fL (78.0-98.0); Mean Platelet Volume 8.8 fL (7.4-10.4); Platelet Count 221 thou/uL (130-400); RBC Distribution Width 11.7 % (11.5-14.5); White Blood Cell (WBC) Count 7.2 thou/uL (4.8-10.8)
[2020-07-21 15:10] LABS: Anion Gap 18 mmol/L (10-20); BUN (Urea Nitrogen) 5 mg/dL (7.0-18.7); Calc. Creatinine Clearance 115 mL/min (70-130); Calcium 8.8 mg/dL (7.8-10.44); Carbon Dioxide 17 mmol/L (22-29); Chloride 108 mmol/L (98-107); Estimated GFR-MDRD Greater than 90; Glucose 82 mg/dL (70-105); Potassium 4.2 mmol/L (3.5-5.1); Sodium 139 mmol/L (136-145)
--- NOTE | 2020-07-21 15:22 | PDOC.HOSPP ---
- Subjective Encounter Date: 07/21/20 Encounter Time: 15:15 Subjective: f/u for large staghorn calculus with impaction s/p L nephrostomy tube by IR. Receiving Rocephin/IVF's and pain meds. - Objective Vital Signs & Weight: Vital Signs (12 hours) Temp Pulse Resp BP Pulse Ox 07/21/20 07:36 97.8 F 59 L 18 118/62 97 Weight Admit Weight 132 lb Weight 132 lb I&O: 07/20/20 07/21/20 07/22/20 06:59 06:59 06:59 Intake Total 1950 Output Total 1650 Balance 300 Result Diagrams: 07/21/20 14:38 07/21/20 14:38 Additional Labs: Microbiology 07/17/20 15:29 Urine Nephrostomy tube Urine Culture - Final NO GROWTH AT 48 HOURS 07/16/20 16:23 Urine voided Urine Culture - Final Hospitalist ROS - Medication Medications: Active Medications Generic Name Dose Route Start Last Admin Trade Name Freq PRN Reason Stop Dose Admin Hydrocodone Bitart/Acetaminophen 1 tab 07/16/20 19:44 07/21/20 05:29 Hydrocodone/Acetaminophen 5/325 Mg Tablet PO 1 tab Q4H PRN Administration Moderate Pain (4-6) Cyclobenzaprine HCl 10 mg 07/20/20 11:00 07/20/20 11:12 Cyclobenzaprine 10 Mg Tab PO 10 mg Q8H PRN Administration NECK OR MUSCLE PAIN Ceftriaxone Sodium 1 gm/ 100 mls @ 200 mls/hr 07/17/20 18:00 07/20/20 16:41 Sodium Chloride IVPB 100 mls Q24HR BOBBY Administration Dextrose/Sodium Chloride 1,000 mls @ 50 mls/hr 07/19/20 09:15 07/20/20 22:31 D5 1/2 Ns IV 1,000 mls .Q20H BOBBY Administration Sodium Chloride 1,000 mls @ 120 mls/hr 07/21/20 13:45 07/21/20 14:00 Normal Saline 0.9% IV Not Given .Q8H20M BOBBY Morphine Sulfate 2 mg 07/17/20 01:42 07/20/20 09:02 Morphine 2 Mg/Ml Vial SLOW IVP 2 mg Q4H PRN Administration Moderate to Severe Pain (6-10) Nicotine 14 mg 07/16/20 22:30 07/20/20 22:14 Nicotine 14 Mg Patch TOP Not Given Q24HR BOBBY Ondansetron HCl 4 mg 07/21/20 00:10 07/21/20 00:23 Ondansetron Pf 4 Mg/2 Ml Vial IVP 4 mg Q6H PRN Administration Nausea/Vomiting - Exam General Appearance: NAD, awake alert Eye: PERRL, anicteric sclera ENT: normocephalic atraumatic, no oropharyngeal lesions Neck: supple, symmetric, no JVD, no thyromegaly, no lymphadenopathy Heart: RRR, no gallops, no rubs, normal peripheral pulses Respiratory: CTAB, no wheezes, no rales, no ronchi, normal chest expansion Gastrointestinal: soft, non-tender, non-distended, normal bowel sounds, no palpable masses Extremities: no cyanosis, no clubbing, no edema Skin: normal turgor, no lesions Neurological: cranial nerve grossly intact, no new deficit Musculoskeletal: normal tone, normal strength, no muscle wasting Psychiatric: normal affect, A&O x 3 Hosp A/P (1) Left nephrolithiasis Code(s): N20.0 - CALCULUS OF KIDNEY Status: Acute Plan: Continue nephrostomy drainage, awaiting potential laser procedure (2) Staghorn calculus Code(s): N20.0 - CALCULUS OF KIDNEY Status: Acute (3) UTI (urinary tract infection) Status: Acute Plan: Continue Rocephin/IVF's (4) Tobacco abuse Code(s): Z72.0 - TOBACCO USE Status: Chronic - 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
--- NOTE | 2020-07-21 15:43 | SPC ---
PROCEDURE: Antegrade pyelogram left renal collecting system with sonographic guided access of the collecting sys tem PROVIDED CLINICAL HISTORY: Obstructing calculus left renal pelvis. COMPARISON: CT abdomen and pelvis on 07/16/2020 and prior nephrostomy tube placement on 07/17/2020 TECHNIQUE: After informed consent was obtained, a left ureteral stent as well as retrograde placement of a left ureteral catheter was placed by Dr. Torres. Patient was placed on the operating room table in prone position. General endotracheal anesthesia was performed by anesthesiology support. The left-sided percutaneous nephrostomy tube and surrounding area were meticulously prepped and drape d in usual sterile fashion. A nephrostogram was performed which opacified the lower pole renal collecting system. The catheter was cut and exchanged over a 0.035 inch Amplatz guidewire for a 5 Man[facility] Berenstein catheter. However, due to redundancy of the catheter in the collecting system, access was not able to be salvaged at this location. As a result, the nephrostomy tube was removed. Utilizing concurrent real-time ultrasound guidance, a posterior inferior pole calyx was accessed util izing micropuncture technique, and a 4 German introducer sheath was placed. Sheath was exchanged over a 0.035 inch Amplatz guidewire for a 5 German Berenstein catheter. Contrast was injected to conf irm placement in the renal collecting system. Multiple attempts at manipulating the catheter and a 0.035 inch Glidewire distal to the large renal pelvis calculus were unsuccessful. Contrast was inject ed via the retrograde ureteral catheter, and again the catheter and Glidewire were unable to be manipulated distal to the calculus or through the infundibulum likely due to combination of the calcu kalin and infundibular stenosis. A posterior calyx in the midportion right kidney was unable to be accessed due to overlying rib. At this time, the procedure was terminated, and the Berenstein catheter was removed. Fluoroscopy: Time-15 minutes 13 seconds Dose-89.4 mGy FINDINGS: Large staghorn calculus left renal pelvis with stenosis involving the inferior pole infundibulum. Mul tiple attempts at manipulating a catheter and Glidewire distal to the staghorn calculus in the renal pelvis were unsuccessful due to calculus extending into the infundibulum as well as narrowing o f the infundibulum. IMPRESSION: 1. Unsuccessful attempt at placement of a left nephroureteral catheter via an inferior pole posterior renal calyx after multiple attempts. 2. A retrograde left ureteral stent is noted in place with the proximal portion of the stent overlyin g the renal pelvis and distal portion overlying the urinary bladder. 3. Staghorn left renal calculus occupying the renal pelvis and extending into the inferior pole infun dibulum where there is associated stenosis.
--- NOTE | 2020-07-21 17:36 | OP ---
DATE OF PROCEDURE: 07/21/2020 PREOPERATIVE DIAGNOSIS: Left staghorn calculi with chronic hydronephrosis. POSTOPERATIVE DIAGNOSIS: Left staghorn calculi with chronic hydronephrosis. PROCEDURES PERFORMED: 1. Cystoscopy. 2. Left retrograde pyelogram. 3. 6 x 28 double-J ureteral stent. 4. Nephrostogram. 5. Nephrostomy tube removal. 6. Attempted percutaneous nephrolithotomy. ANESTHESIA: General. COMPLICATIONS: None apparent. DISPOSITION: To recovery room in stable condition. DRAINS: 1. 20-Samoan 10 mL indwelling urethral Arellano catheter to gravity. 2. 6 x 28 double-J ureteral stent. INTRAOPERATIVE FINDINGS: Large left renal pelvic stone, likely impacted with infundibular stenosis of the lower pole with chronic hydronephrosis of the lower pole. INDICATIONS FOR PROCEDURE AND HISTORY: Ms. Lantigua is a 34-year-old female with history of chronic UTI. She was referred to me a few months ago; however, we were unable to proceed with PCNL due to insurance issues that she is not a [facility] resident of [facility] She has subsequently presented to [facility] Emergency Room, admitted for left flank pain, underwent nephrostomy tube placement by Interventional Radiology. A nephrostomy tube or wire could not be passed beyond the stone due to the impacted nature of her left renal pelvic stone. However, nephrostomy tube was placed and was draining uneventfully. She presented with no evidence of leukocytosis or fever of concern, culture remains negative, on broad-spectrum antibiotic therapy, and presents today for percutaneous nephrolithotomy. Risks and complications of the procedure were reviewed with her in detail including, but not limited to: Bleeding; pain; infection; injury to adjacent organs; ureteral, renal, or kidney injury; possible critical bleed, requiring embolization and rare nephrectomy was reviewed with her in detail. She has been fully informed given nature of her stone, multi-calyceal density size that she will require multiple surgical interventions. DESCRIPTION OF PROCEDURE: After an informed consent was signed, the patient was taken to the operating room and placed in a dorsal lithotomy position with the genital area prepped and draped in the usual surgical sterile fashion. A 21- Samoan cystoscope was utilized for cystoscopy, which demonstrated normal orthotopic ureteral orifices bilaterally. No bladder tumor or stones were seen. An open- ended catheter was utilized for retrograde pyelogram, which demonstrated unremarkable left ureter. The large stone was seen in the renal pelvis and I was able to see the collecting system opacify with chronic hydronephrosis, more severe in the left lower pole. I was able to pass a 0.035 Sensor wire to the left mid to upper pole surrounding the stone and a 6 x 28 double-J ureteral stent was passed. I passed a stent, as Interventional Radiology had a difficult time placing a wire down to the level of the renal pelvis and proximal ureter, therefore stent was placed in case there was an issue obtaining a distal access. An open-ended catheter was able to be passed into the portion of the distal intramural ureter as a 2nd retrograde catheter, so that we may opacify and dilate the left collecting system while IR is placing the nephrostomy tube for access or access maturation. A 20-Samoan Arellano catheter was placed. A semi open-ended catheter was sutured to the Arellano catheter for secure placement. The patient was then placed in a prone position with all pressure points protected and padded. A retrograde access was able to be opacified through the open-ended catheter with the stent, which remains in situ. Please see Dr. Cali's records and operative notes for attempted percutaneous nephrostomy tube access. The pre-existing nephrostomy tube was unable to be utilized, as the wire would not go beyond the calyx, ultimately was removed by Dr. Cali. Multiple attempts were performed to obtain a percutaneous access into the left collecting system. On retrograde opacification, I was able to opacify a mid to upper pole calyx with an adequate infundibulum; however, as her kidney is high riding, the diaphragm pleura reflection is very close to the insertion of her 12th rib. Dr. Cali felt that it was not a good place to place a percutaneous access into the mid upper pole, as there is a risk of lung injury. Therefore, PCNL was abandoned and safe access could not be performed. The patient was then extubated and transported to the recovery room in stable condition. My plan is that as there was significant infundibular stenosis of the lower pole, I would be prudent to obtain a Lasix renal scan before we embark on multiple ureteroscopies. Job ID: [id number] [facility]
[2020-07-21] MEDS: cefTRIAXone\\ROCEPHIN 1 GM in Sodium Chloride 0.9% 100 ML IVPB SCH (17:51)
[2020-07-21] MEDS: Oxybutynin 5 MG TAB PO PRN (19:41)
[2020-07-21] MEDS: Morphine 2 MG/ML VIAL SLOW IVP PRN (19:41)
[2020-07-21] MEDS: Docusate 100 MG CAP PO SCH (19:41)
[2020-07-21] MEDS: Phenazopyridine HCl 100 MG TAB PO PRN (20:12)
[2020-07-21] MEDS: Nicotine 14 MG PATCH TOP SCH (23:07)
[2020-07-21] MEDS: Dextrose 5 %-0.45 % NaCl 1,000 ML IV SCH (23:44)
[2020-07-22] MEDS: Morphine 2 MG/ML VIAL SLOW IVP PRN ×3 (01:18→12:27)
[2020-07-22 05:31] LABS: #Basophils 0.1 thou/uL (0.0-0.2); #Eosinphils 0.2 thou/uL (0.0-0.7); #Lymphocytes 2.3 thou/uL (1.20-3.40); #Monocytes 0.6 thou/uL (0.11-0.59); #Neutrophils 3.2 thou/uL (1.40-6.50); %Eosinophils 2.5 % (0.0-10.0); %Monocytes 9.2 % (0.0-10.0); %Neutrophils 51.4 % (42.0-75.0); Hemoglobin 10.9 g/dL (12.0-16.0); Mean Corpuscular HGB CONC 34.7 g/dL (32.0-36.0); Mean Corpuscular Hemoglobin 32.6 pg (27.0-31.0); Mean Corpuscular Volume 93.9 fL (78.0-98.0); Mean Platelet Volume 8.6 fL (7.4-10.4); Platelet Count 220 thou/uL (130-400); RBC Distribution Width 11.5 % (11.5-14.5); Red Blood Cell (RBC) Count 3.34 mill/uL (4.20-5.40); White Blood Cell (WBC) Count 6.3 thou/uL (4.8-10.8)
[2020-07-22 05:54] LABS: Anion Gap 15 mmol/L (10-20); BUN (Urea Nitrogen) 7 mg/dL (7.0-18.7); Calc. Creatinine Clearance 125 mL/min (70-130); Carbon Dioxide 20 mmol/L (22-29); Chloride 108 mmol/L (98-107); Estimated GFR-MDRD Greater than 90; Glucose 69 mg/dL (70-105); Potassium 3.5 mmol/L (3.5-5.1); Sodium 139 mmol/L (136-145)
[2020-07-22] MEDS: Oxybutynin 5 MG TAB PO PRN (06:11)
[2020-07-22] MEDS: Phenazopyridine HCl 100 MG TAB PO PRN (06:11)
[2020-07-22] MEDS: Sodium Chloride 0.9% 1,000 ML IV SCH (06:11)
[2020-07-22] MEDS: HYDROcodone/Acetaminophen 5/325 mg Tablet PO PRN ×2 (08:11→16:31)
[2020-07-22] MEDS: Docusate 100 MG CAP PO SCH (08:11)
[2020-07-22 08:16] VITALS: BP 99/61; TEMP 98.1
--- NOTE | 2020-07-22 08:34 | PRG ---
DATE OF SERVICE: 07/22/2020 SUBJECTIVE: The patient is feeling okay, relates discomfort due to indwelling urethral Arellano catheter draining nelson urine. OBJECTIVE: VITAL SIGNS: Stable. She is afebrile. I's and O's 2678 in and 1350 out, positive 1.3 L. GENERAL: The patient is in no acute distress. ABDOMEN: Soft, nontender, nondistended. No rigidity. No rebound. EXTREMITIES: No cyanosis, clubbing, or edema. : Arellano catheter draining uneventfully. LABORATORY STUDIES: White count is 6.3, hemoglobin 10.9, platelet 220. Renal function is stable with creatinine 0.6. IMPRESSION AND PLAN: 1. A 34-year-old female with left staghorn, chronic hydronephrosis. 2. Postop day #1, cystoscopy, left retrograde stent placement, nephrostomy tube removal. RECOMMENDATIONS: Due to severe infundibular stenosis, unable to obtain percutaneous access by Interventional Radiology to proceed with PCNL. Therefore, indwelling ureteral stent was placed. Due to infundibulum stenosis, which was unanticipated, we were unable to proceed with safe percutaneous access as her mid and upper pole access were deemed suboptimal due to underlying rib and proximally of the pleura. As such, Lasix renal scan will be obtained today to assess the degree of differential function of the left kidney. If adequate function, she has been informed that I would recommend ureteroscopy, which will require multiple surgical intervention due to stone size moiety and location. Continue indwelling Arellano catheter until renal scan obtained. addendum: Lasix renal scan discussed with patient in detail demonstrating adequate function of the left kidney therefore staged ureteroscopy laser lithotripsy advised I informed the patient that we can proceed with her first ureteroscopy tomorrow, she declines. Requesting surgery to be scheduled in outpatient at a later date. Discussed with hospitalist, will be discharged with oxybutynin, Colace, ciprofloxacin for 7 days. Job ID: [id number] [facility]
--- NOTE | 2020-07-22 11:27 | PDOC.HOSPP ---
- Subjective Encounter Date: 07/22/20 Encounter Time: 11:25 Subjective: f/u for large L staghorn calculus s/p removal of nephrostomy tube and placement of ureteral stent. Plan for manual stone extraction as laser option unavailabe due to proximal stenosis. c/o Arellano catheter pain. - Objective Vital Signs & Weight: Vital Signs (12 hours) Temp Pulse Resp BP Pulse Ox 07/22/20 08:15 98.1 F 56 L 18 99/61 98 07/22/20 08:00 98 07/22/20 05:50 98.2 F 55 L 20 109/65 97 07/21/20 23:42 97.8 F 68 18 96/59 L 98 Weight Admit Weight 132 lb Weight 132 lb I&O: 07/21/20 07/22/20 07/23/20 06:59 06:59 06:59 Intake Total 1950 2678 Output Total 1650 1350 Balance 300 1328 Result Diagrams: 07/22/20 04:52 07/22/20 04:52 Additional Labs: Microbiology 07/17/20 15:29 Urine Nephrostomy tube Urine Culture - Final NO GROWTH AT 48 HOURS 07/16/20 16:23 Urine voided Urine Culture - Final Hospitalist ROS - Medication Medications: Active Medications Generic Name Dose Route Start Last Admin Trade Name Freq PRN Reason Stop Dose Admin Hydrocodone Bitart/Acetaminophen 1 tab 07/16/20 19:44 07/22/20 08:11 Hydrocodone/Acetaminophen 5/325 Mg Tablet PO 1 tab Q4H PRN Administration Moderate Pain (4-6) Cyclobenzaprine HCl 10 mg 07/20/20 11:00 07/20/20 11:12 Cyclobenzaprine 10 Mg Tab PO 10 mg Q8H PRN Administration NECK OR MUSCLE PAIN Docusate Sodium 100 mg 07/21/20 21:00 07/22/20 08:11 Docusate 100 Mg Cap PO 100 mg BID BOBBY Administration Ceftriaxone Sodium 1 gm/ 100 mls @ 200 mls/hr 07/17/20 18:00 07/21/20 17:51 Sodium Chloride IVPB 100 mls Q24HR BOBBY Administration Sodium Chloride 1,000 mls @ 120 mls/hr 07/21/20 13:45 07/22/20 06:11 Normal Saline 0.9% IV 1,000 mls .Q8H20M BOBBY Administration Morphine Sulfate 2 mg 07/17/20 01:42 07/22/20 06:11 Morphine 2 Mg/Ml Vial SLOW IVP 2 mg Q4H PRN Administration Moderate to Severe Pain (6-10) Nicotine 14 mg 07/16/20 22:30 07/21/20 23:07 Nicotine 14 Mg Patch TOP Not Given Q24HR BOBBY Ondansetron HCl 4 mg 07/21/20 00:10 07/21/20 00:23 Ondansetron Pf 4 Mg/2 Ml Vial IVP 4 mg Q6H PRN Administration Nausea/Vomiting Oxybutynin Chloride 5 mg 07/21/20 13:41 07/22/20 06:11 Oxybutynin 5 Mg Tab PO 5 mg Q8H PRN Administration Bladder Spasms Phenazopyridine HCl 200 mg 07/21/20 13:47 07/22/20 06:11 Phenazopyridine Hcl 100 Mg Tab PO 200 mg Q8H PRN Administration Dysuria Hosp A/P (1) Left nephrolithiasis Code(s): N20.0 - CALCULUS OF KIDNEY Status: Acute Plan: Plan for manual extraction due to large nature of stone and inability to use laser option (2) Staghorn calculus Code(s): N20.0 - CALCULUS OF KIDNEY Status: Acute (3) UTI (urinary tract infection) Status: Acute Plan: Suspected, continue Rocephin, IVF's (4) Tobacco abuse Code(s): Z72.0 - TOBACCO USE Status: Chronic - Plan continue antibiotics, out of bed/ambulate Stable overall Continue Rocephin Continue IVF's D/C Arellano today Pain control as clinically indicated No Lovenox/Toradol pending surgery AM lab: BMP, CBC
--- NOTE | 2020-07-22 11:57 | NM ---
NM Renogram HIPN Lasix HISTORY: Renal calculus Radiopharmaceutical: 8.13 mCi technetium 99m-[id number] injected intravenously Diuretic: 30 mg IV Lasix given 15 minutes prior to the injection of the radiopharmaceutical. FINDINGS: The exam was performed with a Arellano catheter in the neobladder. There is good flow to both kidneys with good bilateral tracer uptake and slower excretion by the left kidney compared to the right. Renogram slopes are bilaterally downsloping. The differential function measures 57% on the left and 42% on the right. IMPRESSION: No evidence of high-grade obstruction.
[2020-07-22] MEDS: cefTRIAXone\\ROCEPHIN 1 GM in Sodium Chloride 0.9% 100 ML IVPB SCH (16:27)
--- NOTE | 2020-07-23 02:36 | DIS ---
DATE OF ADMISSION: 07/16/2020 DATE OF DISCHARGE: 07/22/2020 DISCHARGE DIAGNOSES: 1. Left nephrolithiasis. 2. Large left staghorn calculus. 3. Left-sided hydronephrosis secondary to #1 and #2. 4. Urinary tract infection, suspected with no dominant organism identified. 5. Tobacco abuse. CONSULTATIONS: Dr. Huang Acevedo with Urology Service. PERTINENT LABORATORY AND X-RAY FINDINGS: Urine beta-hCG negative 07/16/2020. COVID-19 PCR not detected 07/16/2020. Hepatitis A, B, and C panel nonreactive 07/17/2020. HIV-1 and HIV-2 antigen antibody nonreactive 07/17/2020. Urine culture dated 07/17/2020, showed no growth at 48 hours. Urine culture dated 07/16/2020, showed greater than 100,000 colonies of normal rasheed. CT of the abdomen and pelvis dated 07/16/2020 showed large calcification in the left renal pelvis with obstruction at the left UPJ region with left hydronephrosis. Abdominal radiographs dated 07/17/2020 showed large left staghorn calculus with left-sided nephrostomy tube in position. Lasix renal scan dated 07/22/2020, showed no evidence of high-grade obstruction. HOSPITAL COURSE: The patient initially presented with increased left flank pain with history of prior nephrolithiasis, undergoing CT imaging of the abdomen and pelvis showing a large left staghorn calculus at the proximal left ureter with associated left hydronephrosis. The patient was placed on broad-spectrum IV antibiotic therapy and given IV Toradol and morphine sulfate. The patient was evaluated by the Urology Service with recommendations to undergo nephrostomy tube placement, which the patient did have place successfully. The patient was monitored for clinical response, and overall had excellent urine output during her hospital course. The patient underwent evaluation for potential laser procedure to remove the large impacted stone; however, stenosis proximally with scarring precluded the procedure from occurring. The patient underwent a left ureteral stent placement and removal of the nephrostomy tube with plans for manual extraction at a future date. The patient overall remained clinically stable during the hospital course with stable renal function. The patient decided to leave the hospital on 07/22/2020, and to follow up as an outpatient with Dr. Huang Acevedo. I have examined the patient at the time of discharge and discussed followup instructions. The patient verbalized understanding and agreement, ready for discharge on 07/22/2020. DISCHARGE MEDICATIONS: 1. Oxybutynin 10 mg p.o. daily. 2. Tylenol No. 3, 300/30 mg one tablet p.o. q.6 hours p.r.n. 3. Pyridium 200 mg p.o. q.8 hours p.r.n. FOLLOWUP: The patient may follow up with her primary care provider, Ana Rosa Pate. The patient will follow up with Dr. Huang Acevedo on 07/28/2020 at 12:15 p.m. CONDITION ON DISCHARGE: Stable. ACTIVITY: Ad jeremiah. DIET: Regular. CODE STATUS: Full. DISPOSITION: To home on 07/22/2020. Job ID: [id number]
--- NOTE | 2020-07-23 19:18 | EKG ---
Test Reason : PREOP Blood Pressure : / mmHG Vent. Rate : 045 BPM Atrial Rate : 045 BPM P-R Int : 170 ms QRS Dur : 070 ms QT Int : 470 ms P-R-T Axes : 072 058 076 degrees QTc Int : 406 ms Marked sinus bradycardia Abnormal ECG No previous ECGs available Confirmed by DR. Aileen VIRAMONTES MD ([id number]) on 07/23/2020 7:18:23 PM Referred By: YFN Confirmed By:DR. Aileen VIRAMONTES MD
== END 2020-07-22 18:11 | disposition home or self-care (01) | DRG 661 ==
LOC: ERS 16:15 → T4-A 18:31
PROVIDERS: ADMIT Student in an Organized Health Care Education/Training Program; ATTEND Family Medicine
PROC: 0T778DZ Dilation of Left Ureter with Intraluminal Device, Via Natural or Artificial Opening Endoscopic (ICD-10-PCS; principal; 2020-07-16)
PROC: BT1F1ZZ Fluoroscopy of Left Kidney, Ureter and Bladder using Low Osmolar Contrast (ICD-10-PCS; 2020-07-16)
PROC: 0TP5X0Z Removal of Drainage Device from Kidney, External Approach (ICD-10-PCS; 2020-07-16)
PROC: 0T9430Z Drainage of Left Kidney Pelvis with Drainage Device, Percutaneous Approach (ICD-10-PCS; 2020-07-17)
DX: N13.6 Pyonephrosis (principal); F17.210 Nicotine dependence, cigarettes, uncomplicated; Z20.828 Contact with and (suspected) exposure to other viral communicable diseases; Z88.1 Allergy status to other antibiotic agents; Z88.0 Allergy status to penicillin
CPT/HCPCS: 36415; 50430; 50432; 50437; 71046; 74018; 74176; 78708; 80048; 80053; 80074; 81003; 81015; 81025; 85025; 85027; 85610; 85730; 86850; 86900; 86901; 87086; 87389; 87635; 93005; 93010; 96365; 96366; 96375; 96376; A4641; A9562; C1729; J0696; J1100; J1170; J1885; J2185; J2250; J2270; J2405; J2704; J3010; J3490; Q9967; U0003

== ENCOUNTER 2020-08-04 10:20 | Outpatient (CLI) | payer OTHER ==
[2020-08-04 11:19] LABS: Hemoglobin 12.5 g/dL (12.0-16.0); Mean Corpuscular Hemoglobin 30.9 PG (27.0-33.0); Mean Corpuscular Volume 90.9 fl (80.0-100.0); Mean Platelet Volume 10.9 fl (7.4-10.4); Platelet Count 313 10x3/uL (130-400); RBC Distribution Width 12.3 % (11.5-14.5); Red Blood Cell (RBC) Count 4.05 10x6/uL (3.90-5.20); White Blood Cell (WBC) Count 8.5 10x3/uL (4.5-11.0)
[2020-08-04 11:29] LABS: Anion Gap 19 mmol/L (10-20); BUN (Urea Nitrogen) 17 mg/dL (7.0-18.7); Calc. Creatinine Clearance 0 mL/min (70-130); Calcium 9.1 mg/dL (7.8-10.44); Carbon Dioxide 18 mmol/L (22-29); Chloride 103 mmol/L (98-107); Glucose 77 mg/dL (70-105); Potassium 3.7 mmol/L (3.5-5.1); Sodium 136 mmol/L (136-145)
[2020-08-04 11:34] LABS: PTT 30.9 sec (22.0-33.0); Prothrombin Time 10.8 sec (9.5-12.1)
[2020-08-04 23:15] LABS: SARS-CoV-2 MS2 Positive; SARS-CoV-2 N Gene Negative; SARS-CoV-2 S Gene Negative; SARS-CoV-2 by NAA Not Detected (NotDetected); SARS-CoV-2 orf1ab Negative
--- NOTE | 2020-08-06 07:00 | EKG ---
Test Reason : Blood Pressure : / mmHG Vent. Rate : 066 BPM Atrial Rate : 066 BPM P-R Int : 132 ms QRS Dur : 076 ms QT Int : 402 ms P-R-T Axes : 085 081 082 degrees QTc Int : 421 ms Normal sinus rhythm Normal ECG When compared with ECG of 17-JUL-2020 08:56, No significant change was found Confirmed by JOON SILVESTRE MD ([id number]) on 08/06/2020 7:00:38 AM Referred By: YFN Confirmed By:JOON SILVESTRE MD
== END 2020-08-04 10:21 | disposition home or self-care (01) ==
LOC: LABBT 10:20
PROVIDERS: ATTEND Urology
DX: Z01.818 Encounter for other preprocedural examination (principal); Z20.828 Contact with and (suspected) exposure to other viral communicable diseases; N20.0 Calculus of kidney
CPT/HCPCS: 80048; 85027; 85610; 85730; 87635; 93005; 93010; U0003